=== PATIENT | male | born 1995 | race Caucasian/White ===

== ENCOUNTER 2017-04-29 11:08 | Emergency (ER) | payer OTHER ==
[~2017-04-29] VITALS: Ht 180.3 cm; Wt 68.7 kg
[2017-04-29 11:26] VITALS: TEMP 36.7; Ht 180.3 cm; Wt 68.7 kg
[2017-04-29 12:12] LABS: BASO % 0.3 %; BASO ABS # 0.02 K/uL (0-0.2); EOS % 5.9 %; EOS ABS # 0.43 K/uL (0-0.5); HEMATOCRIT 42.1 % (42-52); HEMOGLOBIN 14.8 g/dL (14.0-18.0); IG# 0.02 K/uL (0.00-0.02); LYMPH % 38.1 %; LYMPH ABS # 2.79 K/uL (1.2-3.4); MEAN CELL VOLUME 83.5 fL (80-100); MEAN CORPUSCULAR HEMOGLOBIN 29.4 pg (25-34); MEAN CORPUSCULAR HGB CONC 35.2 g/dl (32-36); MEAN PLATELET VOLUME 10.6 fL (7.4-10.4); MONO % 11.6 %; MONO ABS # 0.85 K/uL (0.11-0.59); NEUT % 43.8 %; NEUT ABS # 3.22 K/uL (1.4-6.5); PLATELET COUNT 223 K/uL (130-400); RED CELL DISTRIBUTION WIDTH CV 13.3 % (11.5-14.5); WHITE BLOOD COUNT 7.33 K/uL (4.8-10.8)
[2017-04-29 12:30] LABS: ALBUMIN 4.1 gm/dl (3.4-5.0); CALCIUM 9.1 mg/dl (8.5-10.1); POTASSIUM 3.5 mmol/L (3.5-5.1)
[2017-04-29 12:33] LABS: TOTAL PROTEIN 7.8 gm/dl (6.4-8.2)
[2017-04-29 12:44] LABS: INFLUENZA B ANTIGEN Neg for Influ B (NEG)
[2017-04-29] MEDS ORDERED: KETOROLAC TROMETHAMINE 30 MG/ML VIAL IV STA (12:49)
[2017-04-29] MEDS ORDERED: ACETAMINOPHEN 500 MG TAB PO STA (12:49)
[2017-04-29] MEDS ORDERED: COUGH DROP (SUGAR FREE) LOZ 24 LOZ/1 BOX LOZ STA (12:49)
--- NOTE | 2017-04-29 12:54 | EMERGENCY ROOM VISIT NOTE ---
History Report prepared by Lauren: Jesse Gonzalez Under the Supervision of: Dr. Jose Roberto Baldwin M.D. First contact with patient: 12:01 Chief Complaint: FLU LIKE SX Stated Complaint: COLD SORE THROAT COUGH BLOOD History of Present Illness The patient is a 21 year old male who presents to the ED with a cc of constant sore throat beginning two days ago. He rates his discomfort as a 6/10 in severity. The patient states he took DayQuil and NyQuil for his symptoms without any relief. Positive cough with an episode of blood in mucous, SOB yesterday, febrile, chills. Negative leg swelling, leg pain, prolonged traveling, a history of blood clots, alcohol or drugs use, any pain, nausea, vomiting. The patient reports that he ceased smoking last month. Source of History: patient Onset: two days ago Position: throat Symptom Intensity: 6/10 Quality: other (sore) Timing: constant Modifying Factors (Relieving): other (DayQuil, NyQuil) Associated Symptoms: + chills, + cough, + SOB, No nausea, No vomiting Review of Systems See HPI for pertinent positives and negatives. A total of ten systems were reviewed and were otherwise negative. Past Medical & Surgical Medical Problems: (1) No known problems Family History Diabetes mellitus Hypertension Social History Smoking Status: Former Smoker Alcohol Use: none Drug Use: none Marital Status: single Housing Status: lives with roommate Occupation Status: [employer] student Current/Historical Medications Scheduled Prednisone (Prednisone), 50 MG PO DAILY Allergies Coded Allergies: No Known Allergies (Unverified , 04/29/17) Physical Exam Vital Signs Date Time Temp Pulse Resp B/P (MAP) Pulse Ox O2 Delivery O2 Flow Rate FiO2 04/29/17 13:00 64 20 112/65 99 Room Air 04/29/17 11:26 36.7 92 20 105/65 98 Room Air Physical Exam GENERAL: Awake, alert, well-appearing, NAD HENT: Normocephalic, atraumatic. Posterior pharynx clear. No tonsillar or uvular deviation or swelling. EYES: Normal conjunctiva. Sclera non-icteric. NECK: Supple. No nuchal rigidity. FROM. No stridor. RESPIRATORY: CTAB, no rhonchi, wheezing, crackles CARDIAC: RRR, no MRG ABDOMEN: Soft, NTND, BS+ MSK: No chest wall TTP, no LE edema, no asymmetry, no calf pain. NEURO: GCS 15, CN 2-12 intact, moves all 4s on command SKIN: No rash or jaundice noted. Medical Decision & Procedures ER Provider Diagnostic Interpretation: X-ray: Per my interpretation, radiologist review. CHEST 2 VIEWS ROUTINE CLINICAL HISTORY: Hemoptysis, throat pain. Cold symptoms. COMPARISON STUDY: No previous studies for comparison. FINDINGS: The cardiac and mediastinal contours are normal. There is no evidence of focal pulmonary consolidation. There is no evidence of failure. No pleural effusions are visualized.[ IMPRESSION: No active disease in the chest. Electronically signed by: Lino Santana M.D. 04/29/2017 1:32 PM Dictated Date/Time: 04/29/2017 1:32 PM Laboratory Results 04/29/17 12:02 Red Blood Count 5.04, Mean Corpuscular Volume 83.5, Mean Corpuscular Hemoglobin 29.4, Mean Corpuscular Hemoglobin Concent 35.2, Mean Platelet Volume 10.6, Neutrophils (%) (Auto) 43.8, Lymphocytes (%) (Auto) 38.1, Monocytes (%) (Auto) 11.6, Eosinophils (%) (Auto) 5.9, Basophils (%) (Auto) 0.3, Neutrophils # (Auto ) 3.22, Lymphocytes # (Auto) 2.79, Monocytes # (Auto) 0.85, Eosinophils # (Auto ) 0.43, Basophils # (Auto) 0.02 04/29/17 12:02 Test 04/29/17 12:02 04/29/17 12:03 White Blood Count 7.33 K/uL (4.8-10.8) Red Blood Count 5.04 M/uL (4.7-6.1) Hemoglobin 14.8 g/dL (14.0-18.0) Hematocrit 42.1 % (42-52) Mean Corpuscular Volume 83.5 fL (80-100) Mean Corpuscular Hemoglobin 29.4 pg (25-34) Mean Corpuscular Hemoglobin Concent 35.2 g/dl (32-36) Platelet Count 223 K/uL (130-400) Mean Platelet Volume 10.6 fL (7.4-10.4) Neutrophils (%) (Auto) 43.8 % Lymphocytes (%) (Auto) 38.1 % Monocytes (%) (Auto) 11.6 % Eosinophils (%) (Auto) 5.9 % Basophils (%) (Auto) 0.3 % Neutrophils # (Auto) 3.22 K/uL (1.4-6.5) Lymphocytes # (Auto) 2.79 K/uL (1.2-3.4) Monocytes # (Auto) 0.85 K/uL (0.11-0.59) Eosinophils # (Auto) 0.43 K/uL (0-0.5) Basophils # (Auto) 0.02 K/uL (0-0.2) RDW Standard Deviation 40.0 fL (36.4-46.3) RDW Coefficient of Variation 13.3 % (11.5-14.5) Immature Granulocyte % (Auto) 0.3 % Immature Granulocyte # (Auto) 0.02 K/uL (0.00-0.02) Anion Gap 6.0 mmol/L (3-11) Est Creatinine Clear Calc Drug Dose 113.5 ml/min Estimated GFR () 124.1 Estimated GFR (Non- 107.1 BUN/Creatinine Ratio 8.1 (10-20) Calcium Level 9.1 mg/dl (8.5-10.1) Total Bilirubin 0.3 mg/dl (0.2-1) Aspartate Amino Transf (AST/SGOT) 12 U/L (15-37) Alanine Aminotransferase (ALT/SGPT) 18 U/L (12-78) Alkaline Phosphatase 79 U/L (45-117) Total Protein 7.8 gm/dl (6.4-8.2) Albumin 4.1 gm/dl (3.4-5.0) Globulin 3.7 gm/dl (2.5-4.0) Albumin/Globulin Ratio 1.1 (0.9-2) Influenza Type A Antigen Neg for Influ A (NEG) Influenza Type B Antigen Neg for Influ B (NEG) Laboratory results reviewed by me Medications Administered Medications (Trade) Dose Ordered Sig/Babs Route Start Time Stop Time Status Last Admin Dose Admin Menthol (Nice Ubaldo) 1 ubaldo NOW STAT UBALDO 04/29/17 12:49 04/29/17 12:50 DC 04/29/17 13:06 1 UBALDO Ketorolac Tromethamine (Toradol Inj) 30 mg NOW STAT IV 04/29/17 12:49 04/29/17 12:50 DC 04/29/17 13:06 30 MG Acetaminophen (Tylenol Tab) 1,000 mg NOW STAT PO 04/29/17 12:49 04/29/17 12:50 DC 04/29/17 13:07 1,000 MG Prednisone (PredniSONE TAB) 50 mg NOW STAT PO 04/29/17 12:49 04/29/17 12:50 DC 04/29/17 13:06 50 MG ED Course 1244: The patient was evaluated in room B10. A complete history and physical exam was performed. 1402: I reevaluated the patient. Discussed results and discharge instructions: He verbalized understanding and agreement. The patient is ready for discharge. Medical Decision Triage Nursing notes reviewed. The patient is a 21 year old male who presents to the ED with a cc of constant sore throat beginning two days ago. The patient's presentation and history were concerning for etiologies such as viral syndrome, tonsillitis, streptococcal pharyngitis, mononucleosis, peritonsillar abscess, retropharyngeal abscess, otitis, pneumonia, influenza, as well as others were entertained. Patient was seen and evaluated the bedside. Patient had been complained of some sore throat since Sunday. Patient also did have some mild cough. Patient did no bloody streaks within the sputum. Patient denies any prior history of DVT or PE, shortness of breath or chest pain right now. No lower externally swelling, no recent prolonged car or plane travel. Patient is otherwise very well-appearing has normal vital signs. Patient's chest x-ray is clear. There are no pleural effusions. No evidence of pneumothorax or consolidation. Patient's blood work is fairly unremarkable and the patient had a negative flu. Patient PE RC of 1 given hemoptysis. Patient will score of 1 given her hemoptysis. Patient again has stable vital signs. I believe this is either related to a bronchitis or even some blood in the back of the throat that may have caused some blood streaking. Patient is otherwise afebrile and has stable vital signs. Patient not tachypneic nor hypoxic. I believe that PE is less likely. Patient has no signs of pleural effusion which also may be indicative of a possible blood clot however that is also present. Patient was deemed suitable for outpatient follow-up and treatment at this time. Patient was given medications for home and was told to continue smoking cessation. Patient was given strict follow-up, discharge, and return precautions. All questions were answered. Patient was deemed suitable for outpatient follow-up at this time. Patient agreed with the plan of care and was safely discharged home. Medication Reconcilliation Current Medication List: was personally reviewed by me Blood Pressure Screening Patient's blood pressure: Normal blood pressure Impression Primary Impression: Influenza-like symptoms Additional Impression: Acute bronchitis Scribe Attestation The scribe's documentation has been prepared under my direction and personally reviewed by me in its entirety. I confirm that the note above accurately reflects all work, treatment, procedures, and medical decision making performed by me. Departure Information Dispostion Home / Self-Care Prescriptions Prednisone (PREDNISONE) 50 Mg Tab 50 MG PO DAILY for 4 Days, #4 TAB Prov: Jose Roberto Baldwin M.D. 04/29/17 Referrals No Doctor, Assigned (PCP) Forms HOME CARE DOCUMENTATION FORM, IMPORTANT VISIT INFORMATION Patient Instructions Bronchitis Acute, ED Hemoptysis, My [facility] Additional Instructions Please return to the emergency department if you have worsening or recurrent symptoms not amenable to at-home treatment. Please call for a follow-up appointment with her primary care physician. Please take your medications as prescribed. If you have other concerns and/or complaints please feel free to also call your primary care physician's office or return the ED for further evaluation, management, and treatment. You may take 600 mg Ibuprofen every 6 hours as needed for pain with food for no more than 2 consecutive days. You may take tylenol 1000 mg every 6 hours as needed for pain. You may take motrin and tylenol separately or at the same time. Take your medications as prescribed. Take the steroids as prescribed preferably with food and in the morning. You may also take Tessalon Perles or Cepacol for sore throat. This may also help with a cough suppressant. Please return if you do have worsening blood in your cough, developed very bad shortness of breath or chest pains, or lower extremity swelling. You have been examined and treated today on an emergency basis only. This is not a substitute for, or an effort to provide, complete comprehensive medical care. It is impossible to recognize and treat all injuries or illnesses in a single emergency department visit. It is therefore important that you follow up closely with [facility], your PCP, and/or your specialist(s). Call as soon as possible for an appointment. Thank you for your time and consideration. I look forward to speaking with you again soon. Please don't hesitate to call us if you have any questions. Problem Qualifiers Additional Impression: Acute bronchitis Bronchitis organism: unspecified organism Qualified Codes: J20.9 - Acute bronchitis, unspecified
--- NOTE | 2017-04-29 13:33 | DIAGNOSTIC IMAGING REPORT ---
CHEST 2 VIEWS ROUTINE CLINICAL HISTORY: Hemoptysis, throat pain. Cold symptoms. COMPARISON STUDY: No previous studies for comparison. FINDINGS: The cardiac and mediastinal contours are normal. There is no evidence of focal pulmonary consolidation. There is no evidence of failure. No pleural effusions are visualized.[ IMPRESSION: No active disease in the chest. Electronically signed by: Lino Santana M.D. 04/29/2017 1:32 PM Dictated Date/Time: 04/29/2017 1:32 PM
[2017-04-29] MEDS ORDERED: PRED50TA PO (13:57)
[2017-04-29 14:53] VITALS: BP 122/60; PULSE 76; O2SAT 98
== END 2017-04-29 14:57 | disposition home or self-care (01) ==
LOC: C.EDB 11:11
DX: J02.9 Acute pharyngitis, unspecified (principal); R05 Cough; R50.9 Fever, unspecified; R06.02 Shortness of breath; J20.9 Acute bronchitis, unspecified; Z87.891 Personal history of nicotine dependence; Z83.3 Family history of diabetes mellitus; Z82.49 Family history of ischemic heart disease and other diseases of the circulatory system